=== PATIENT | female | born 1995 | race Caucasian/White ===

== ENCOUNTER 2025-08-20 08:40 | Outpatient (CLI) | payer OTHER ==
[2025-08-20 09:27] LABS: #Basophils 0.05 10x3/uL (0.0-0.2); #Eosinophils 0.38 10x3/uL (0.0-0.5); #Monocytes 0.39 10x3/uL (0.0-1.1); #Neutrophils 3.48 10x3/uL (1.5-8.4); %Basophils 0.8 % (0.0-2.0); %Eosinophils 6.0 % (0.0-6.0); %Lymphocytes 32.0 % (18.0-47.0); %Monocytes 6.2 % (0.0-10.0); %Neutrophils 54.8 % (40.0-75.0); Hematocrit 40.3 % (34.9-44.5); Hemoglobin 13.6 g/dL (12.0-15.5); Mean Corpuscular Hemoglobin 29.5 pg (27.0-33.0); Mean Corpuscular Volume 87.4 fL (81.6-98.3); Platelet Count 235 10x3/uL (150-450); Red Blood Cell (RBC) Count 4.61 10x6/uL (3.90-5.03); White Blood Cell (WBC) Count 6.34 10x3/uL (3.5-10.5)
[2025-08-20 10:23] LABS: BHCG - Serum Negative (NEGATIVE); Pregs Control Background? CLEAR/WHITE (CLR/WHITE); Pregs Control Bar Appear? YES (CONTROL BAR)
[2025-08-20 10:49] LABS: ALT (SGPT) 26 U/L (Less than 34); AST (SGOT) 22 U/L (11-34); Albumin 5.0 g/dL (3.1-4.5); Alkaline Phosphatase 61 U/L (40-110); Anion Gap 14 mmol/L (10-20); BUN (Urea Nitrogen) 11 mg/dL (7.0-18.7); Bilirubin, Direct 0.3 mg/dL (0.1-0.3); Bilirubin, Total 0.9 mg/dL (0.3-1.2); Calc. Creatinine Clearance 0 mL/min (70-130); Calcium 10.0 mg/dL (7.8-10.44); Carbon Dioxide 26 mmol/L (22-29); Chloride 103 mmol/L (98-107); Glucose 117 mg/dL (70-105); Potassium 4.0 mmol/L (3.5-5.1); Sodium 139 mmol/L (136-145)
== END 2025-08-20 08:41 | disposition home or self-care (01) ==
LOC: CSHLAB 08:40
PROVIDERS: ATTEND Surgery
DX: Z01.812 Encounter for preprocedural laboratory examination (principal); K80.20 Calculus of gallbladder without cholecystitis without obstruction
CPT/HCPCS: 80048; 80076; 84703; 85025

== ENCOUNTER 2025-08-23 07:42 | Day surgery (SDC) | payer OTHER ==
[2025-08-20 09:02] VITALS: BMI 25.9
[2025-08-23] MEDS ORDERED: Bupivacaine/Epinephrine 0.25% 30 ML VIAL ONE (08:37)
[2025-08-23] MEDS ORDERED: Rocuronium Bromide 10 MG/ML (10ML VIAL) ONE (08:38)
[2025-08-23] MEDS ORDERED: PROPOFOL 20 ML ONE (08:38)
[2025-08-23] MEDS ORDERED: CEFAZOLIN 2 GM VIAL ONE (08:42)
[2025-08-23] MEDS ORDERED: SUGAMMADEX SODIUM 200 MG/2 ML VIAL ONE (09:11)
== END 2025-08-23 11:15 | disposition home or self-care (01) ==
LOC: CSHSDC 07:42
PROVIDERS: ATTEND Surgery
PROC: 0FT44ZZ Resection of Gallbladder, Percutaneous Endoscopic Approach (ICD-10-PCS; principal; 2025-08-23)
DX: K80.10 Calculus of gallbladder with chronic cholecystitis without obstruction (principal); Z90.89 Acquired absence of other organs
CPT/HCPCS: 47562; C9776; 88304; C1889; J1100; J2704; J3010; S2900